=== PATIENT | male | born 1950 | race Caucasian/White ===

== ENCOUNTER 2024-07-22 08:06 | Day surgery (SDC) | payer MEDICARE, SELFPAY ==
[2024-07-22] MEDS: Tropicam./Phenyleph. (1/2.5%) 5 ML BTL OD ×3 (08:45→09:08)
[2024-07-22 08:50] VITALS: BP 128/79; PULSE 74; RESP 16; TEMP 36.3; O2SAT 97
--- NOTE | 2024-07-22 09:11 | ANES.PREOP_ITS ---
General Info Date of Service Date Performed: 07/22/24 Height: 5 ft 4 in Weight: 92.8 kg Body Mass Index (BMI): 35.1 Surgical Procedure: Operation Date: 07/22/24 09:55 Proposed Procedure Side Surgeon p Cataract Extraction with IOL Implant Right Edward Rodrigues MD Meds Allergies and Home Medications Allergies Allergy/AdvReac Type Severity Reaction Status Date / Time Sulfa (Sulfonamide Allergy Intermediate Skin Rash Verified 07/22/24 08:57 Antibiotics) hydromorphone AdvReac Intermediate Dizziness/L Verified 07/22/24 08:57 ighthead Home Medication ?Medication ?Instructions ?Recorded antiarthritic combination no.2 900 mg PO DAILY 07/20/24 mg tablet (glucosamine-chondroitin) aspirin 81 mg capsule 81 mg PO DAILY 07/20/24 cholecalciferol (vitamin D3) 125 125 mcg PO DAILY 07/20/24 mcg (5,000 unit) tablet (Vitamin D3) coQ10 (ubiquinol) 100 mg capsule 100 mg PO DAILY 07/20/24 esomeprazole magnesium 20 mg 20 mg PO DAILY 07/20/24 capsule,delayed release (Nexium) lisinopril 20 mg tablet 20 mg PO DAILY 07/20/24 magnesium aspartate HCl 61 mg (615 61 mg PO BID 07/20/24 mg) tablet,delayed release prostate blend 07/20/24 quercetin 500 mg capsule 600 mg PO DAILY 07/20/24 rosuvastatin 20 mg tablet (Crestor) 20 mg PO DAILY 07/20/24 selenium 200 mcg capsule 200 mcg PO DAILY 07/20/24 sildenafil 50 mg tablet 50 mg PO DAILY 07/20/24 turmeric 400 mg capsule 500 mg PO DAILY 07/20/24 vitamin B complex 1 cap PO DAILY 07/20/24 Current Visit Medications: Current Medications Generic Name Dose Route Start Last Admin Trade Name Freq PRN Reason Stop Dose Admin Acetaminophen 1,000 mg 07/22/24 06:00 Acetaminophen 500 Mg Tab PO 08/21/24 05:59 Q4H PRN PRN Balanced Salt Solution 500 ml 07/22/24 06:00 Balanced Salt Soln.-Plus 500 Ml Bag OP 08/21/24 05:59 DIRECTED DALY Miscellaneous Medication 0 ml 07/22/24 06:00 Prednisolone 1%, Moxifloxacin 0.5%, Bromfenac 0.09% 5.6ml Btl OD 08/21/24 05:59 DIRECTED [facility] Miscellaneous Medication 0 ml 07/22/24 06:00 07/22/24 09:08 Tropicam./Phenyleph. (1/2.5%) 5 Ml Btl OD 08/21/24 05:59 1 drp DIRECTED [facility] Administration Tetracaine HCl 0 ml 07/22/24 06:00 Tetracaine 0.5% 4 Ml Btl OD 08/21/24 05:59 DIRECTED [facility] PFSH Active Problems Active Problems: Problem Status Onset Code Nuclear age-related cataract, right eye Acute H25.11 Medical History Medical History Stenosis of left vertebral artery Skin lesion of left ear Skin lesion Senile hyperkeratosis Reflux esophagitis Prediabetes URIEL (obstructive sleep apnea) Obesity Nocturnal hypoxia Left shoulder pain Left hip pain BPH (benign prostatic hyperplasia) Incomplete bladder emptying HTN (hypertension) HLD (hyperlipidemia) History of broken collarbone Cervical stenosis of spine Tobacco Smoking/Tobacco Use Status: Never Alcohol Alcohol Intake: never Substance Use Substance use: Never Substance use type: does not use Vital Signs and Lab Results Vital Signs Most Recent Vital Signs in EMR: Most Recent Vital Signs Temp Pulse Resp BP Pulse Ox 36.3 C L 74 16 128/79 97 07/22/24 08:50 07/22/24 08:50 07/22/24 08:50 07/22/24 08:50 07/22/24 08:50 Lab Results Blood Type / Crossmatch: No Data to Display Complete Blood Count: No Data to Display Complete Metabolic Panel: No Data to Display Liver Function Panel: No Data to Display Coagulation Panel: No Data to Display Cardiac Panel: No Data to Display Arterial Blood Gas: No Data to Display Venous Blood Gas: No Data to Display Pancreas Panel: No Data to Display Thyroid Panel: No Data to Display Infectious Disease: No Data to Display Blood Cultures: No Data to Display Toxicology Panel: No Data to Display Anesthesia Assessment and Plan Anesthesia History Personal History: No History of Anesthesia Complications Family History: No Family History of Anesthesia Complications Exercise Tolerance Exercise Tolerance: Metabolic Equivalents>4 Pertinent Negatives Pertinent Negatives: No Symptoms of GERD Cardiac & Pulmonary Exam Cardiac Exam: Normal S1/S2 Heart Sounds Pulmonary Exam: Clear Bilateral Breath Sounds Implantable Cardiac Device Does patient have a Pacemaker or an ICD?: No Airway Exam Known Difficult Airway: No Mallampati Class: 2 Mouth Opening: Normal (> 3cm) Thyromental Distance: Greater than 3 cm Neck Range of Motion: Full ROM Neck Circumference: Normal Teeth Condition: Normal Dentition ASA Classification ASA Score: ASA 2 Emergency Case?: No NPO Status NPO Status: NPO Clears >2 hours, Solids >8 hours Anesthesia Plan Resuscitation Status: Full Code Anesthesia Technique: MAC Anesthesia Airway Planned: Natural Airway Monitors Used: Standard Monitors
[2024-07-22 09:13] VITALS: BMI 35.1
[2024-07-22] MEDS: Tetracaine 0.5% 4 ML BTL OD (10:21)
[2024-07-22] MEDS: Povidone-Iodine Ophth 30 ML BTL (10:22)
[2024-07-22] MEDS: Balanced Salt Soln.-PLUS 500 ML BAG OP (10:27)
[2024-07-22] MEDS: Phenylephrine/Lidocaine (15/10) MG/ML 1 ML VIAL (10:27)
[2024-07-22] MEDS: Trypan Blue 0.06% 0.5 ML SYR (10:28)
[2024-07-22] MEDS: Duovisc Viscoelastic System EACH 1 EACH (10:28)
[2024-07-22] MEDS: Lidocaine 1% Pres-Free 5 ML VIAL (10:29)
[2024-07-22] MEDS: Prednisolone 1%, Moxifloxacin 0.5%, Bromfenac 0.09% 5.6ML BTL OD (10:49)
[2024-07-22] MEDS: Moxifloxacin-PF 1 MG/ML VIAL (10:49)
[2024-07-22 10:56] VITALS: BP 118/76; PULSE 66; RESP 17; TEMP 36.5; O2SAT 97
--- NOTE | 2024-07-22 11:02 | ROE_ITS ---
Operative Note Operative Note PRE-OP DIAGNOSIS: Dense nuclear cataract, right eye POST-OP DIAGNOSIS: same PROCEDURE: Cataract extraction using phacoemulsification with intraocular lens implant, right eye SURGEON: Edward Rodrigues ANESTHESIA TYPE: Local By Surgeon and MAC Refer to Anesthesia Record ESTIMATED BLOOD LOSS: 0 PATHOLOGY: none sent COMPLICATIONS: None Patient was transported to: same day Patient's condition: stable Implants: Tong Clareon [id number] Indications: Progressive decreased vision due to cataract, right eye Procedure Description: CATARACT SURGERY OPERATIVE REPORT PREOPERATIVE DIAGNOSIS: Dense nuclear cataract, right eye POSTOPERATIVE DIAGNOSIS: Same OPERATION: Cataract extraction using phacoemulsification with posterior chamber intraocular lens implant, right eye. IOL: IOL [facility] Supervisor/Model: Tong Clareon [id number] IOL Power: + 28.0 diopters IOL Serial Number: [id number] Optic Diameter: 6.0mm Haptic/Overall Diameter: 13.0mm PHACO INFO: Tong Centurion Vision System with OZil and Active Fluidics Cumulative Dispersed Energy (CDE): 22.33 seconds SURGEON: Edward Rodrigues MD, DICK ANESTHESIA: Monitored Anesthesia Care (MAC), with local sub-tenon's anesthetic infiltration COMPLICATIONS: None SPECIMENS: None INDICATIONS FOR PROCEDURE: The patient is a 73-year-old male with history of diminished visual acuity in his right eye secondary to the development of dense nuclear cataract. He is significantly symptomatic that he desires cataract surgery in attempt to improve and maximize his vision. See office notes for detailed information. PROCEDURE: The correct surgical eye was identified and marked as the right eye and the pupil was dilated in the preoperative area using mydriatics and cycloplegics. The dilated pupil size was 8.0 mm. The patient elected to proceed without oral sedation. The patient was brought to the operating room where cardiopulmonary monitoring was instituted and surgical time-out was performed, confirming the correct operative eye and IOL power. Topical anesthesia was administered and ophthalmic povidone-iodine 5% was instilled into the conjunctival fornices. The narendra-ocular area was prepped with Betadine 10% solution and draped in the usual sterile fashion for intraocular surgery, including an aperture drape. A Tegaderm transparent film dressing was cut in half and used to cover the lashes and lid margins. Care was taken to sequester the lashes and lid margins under the Tegaderm dressing. A lid speculum was placed between the lids of the operative eye and the Tong LuxOR Revalia operating microscope was maneuvered into position. Renny scissors were then used to make a conjunctival buttonhole approximately 6mm posterior to the limbus in the inferonasal quadrant. Blunt dissection was carried out to expose bare sclera, and a blunt-tipped sub-tenon?s anesthesia cannula was introduced and passed posteriorly along the globe where non- preserved plain lidocaine was injected into posterior sub-Tenon?s space. A sideport knife was used to make a paracentesis port. VisionBlue was injected into the anterior chamber and allowed to sit for 30 seconds. Intraocular phenylephrine/lidocaine was injected into the anterior chamber. The anterior chamber was then filled with viscoelastic. A keratome knife was used to construct a two--plane clear corneal tunnel extending 2.0mm into clear cornea. A flap was raised on the anterior capsule and capsulorhexis forceps were used to complete a continuous curvilinear capsulorhexis of 5.5 mm. Balanced salt solution was then used to perform cortical cleaving hydrodissection and nuclear hydrodelineation until the lens could be freely rotated within the capsular bag. The lens nucleus was then disassembled and removed within the capsular bag and iris plane using phacoemulsification. Additional Viscoat was injected into the anterior chamber intermittently due to the dense brunescent nuclear cataract. Residual cortical material was removed using the I/A handpiece. The posterior capsule was carefully polished to remove as much residual lens epithelial cells as safely possible. The capsular bag was then inflated and the anterior chamber deepened with cohesive viscoelastic. The lens implant described above was inserted into the capsular bag using the Tong Autonome Injector. A Kuglen hook was used to dial the IOL into position. Residual viscoelastic was then removed first from posterior to the IOL, then from the anterior chamber using the I/A handpiece. The lens implant was noted to center nicely within the capsular bag. The incisions were stromally hydrated, and the anterior chamber was reformed using BSS. Then 0.5cc of moxifloxacin 1.0mg/ml were injected into the capsular bag and anterior chamber. The incisions were checked with a Weck spear and found to be secure. Several drops of ophthalmic povidone-iodine 5% were then applied to the eye followed by two drops of combination steroid/NSAID/antibiotic solution. The drapes were removed and a clear plastic protective eye shield was placed over the eye. The patient was then returned to Same Day Surgery in stable condition. Date of Procedure: 07/22/24
--- NOTE | 2024-07-22 11:02 | W.PM.DSUDISC ---
Date of service: 07/22/24 Discharge Plan Disposition Patient Disposition: Home Discharge Details Attending Provider: Edward Rodrigues Primary Care Provider: MAISHA CASTELLANOS Home Meds and New Rx's Prescriptions: No Action aspirin 81 mg capsule 81 mg PO DAILY coQ10 (ubiquinol) 100 mg capsule 100 mg PO DAILY glucosamine-chondroitin 900 mg tablet PO DAILY lisinopril 20 mg tablet 20 mg PO DAILY magnesium aspartate HCl 61 mg (615 mg) tablet,delayed release (DR/EC) 61 mg PO BID esomeprazole magnesium [Nexium] 20 mg capsule,delayed release(DR/EC) 20 mg PO DAILY prostate blend quercetin 500 mg capsule 600 mg PO DAILY rosuvastatin [Crestor] 20 mg tablet 20 mg PO DAILY selenium 200 mcg capsule 200 mcg PO DAILY sildenafil 50 mg tablet 50 mg PO DAILY Rx Instructions: administer 30 minutes to 4 hours before activity turmeric 400 mg capsule 500 mg PO DAILY vitamin B complex Capsule 1 cap PO DAILY cholecalciferol (vitamin D3) [Vitamin D3] 125 mcg (5,000 unit) tablet 125 mcg PO DAILY Discharge Instructions Stand Alone Forms: DSU Post-Op Cataract, Gael Cabrera (DSU) Discharge Orders Discharge Orders: Discharge Order (Routine); Ordered 07/22/24 Ordered By: Edward Rodrigues DS: Diagnosis Discharge Diagnosis (1) Nuclear age-related cataract, right eye: Status: Resolved
--- NOTE | 2024-07-22 11:24 | W.ANESPOSTOP ---
Postoperative Evaluation Date, Time and Location Date Performed: 07/22/24 Time Performed: 11:18 Patient Location: Day Surgery Unit Vital Signs Most Recent Imported Vital Signs: Most Recent Vital Signs Temp Pulse Resp BP Pulse Ox 36.5 C 66 17 118/76 97 07/22/24 10:56 07/22/24 10:56 07/22/24 10:56 07/22/24 10:56 07/22/24 10:56 Pain Score Most Recent Pain Score: Most Recent Pain Score Pain Level 0 07/22/24 10:56 Assessment Mental Status: Awake (Alert & Oriented to Patient Baseline) Airway and Respiratory Function: Patent airway with normal (patient baseline) respiratory exam Cardiovascular Function: Hemodynamically Stable Hydration Status: Adequately Hydrated Nausea & Vomiting: No Nausea or Vomiting Pain: Pt. Denies Any Pain Peripheral Nerve Block: Patient did not receive a nerve block
== END 2024-07-22 11:13 | disposition home or self-care (01) ==
PROVIDERS: PCP Family Medicine; Visit Provider Ophthalmology
PROC: (CPT 66984; principal; 2024-07-22 09:45)
DX: H25.11 Age-related nuclear cataract, right eye (principal)
CPT/HCPCS: 66984; 00123; V2632; J2003

== ENCOUNTER 2024-07-29 06:45 | Day surgery (SDC) | payer MEDICARE, SELFPAY ==
[2024-07-29 06:48] VITALS: BP 122/80; PULSE 64; RESP 18; TEMP 36.6; O2SAT 96
[2024-07-29] MEDS: Tropicam./Phenyleph. (1/2.5%) 5 ML BTL OS ×3 (06:59→07:09)
[2024-07-29 08:16] VITALS: BMI 34.9
--- NOTE | 2024-07-29 08:16 | ANES.PREOP_ITS ---
General Info Date of Service Date Performed: 07/29/24 Height: 5 ft 4 in Weight: 92.2 kg Body Mass Index (BMI): 34.9 Surgical Procedure: Operation Date: 07/29/24 08:25 Proposed Procedure Side Surgeon p Cataract Extraction with IOL Implant Left Edward Rodrigues MD Meds Allergies and Home Medications Allergies Allergy/AdvReac Type Severity Reaction Status Date / Time Sulfa (Sulfonamide Allergy Intermediate Skin Rash Verified 07/29/24 07:01 Antibiotics) hydromorphone AdvReac Intermediate Dizziness/L Verified 07/29/24 07:01 ighthead Home Medication ?Medication ?Instructions ?Recorded antiarthritic combination no.2 900 900 mg PO DAILY 07/20/24 mg tablet (glucosamine-chondroitin) aspirin 81 mg capsule 81 mg PO DAILY 07/20/24 cholecalciferol (vitamin D3) 125 125 mcg PO DAILY 07/20/24 mcg (5,000 unit) tablet (Vitamin D3) coQ10 (ubiquinol) 100 mg capsule 100 mg PO DAILY 07/20/24 esomeprazole magnesium 20 mg 20 mg PO DAILY 07/20/24 capsule,delayed release (Nexium) lisinopril 20 mg tablet 20 mg PO DAILY 07/20/24 magnesium aspartate HCl 61 mg (615 61 mg PO BID 07/20/24 mg) tablet,delayed release prostate blend 07/20/24 quercetin 500 mg capsule 600 mg PO DAILY 07/20/24 rosuvastatin 20 mg tablet (Crestor) 20 mg PO DAILY 07/20/24 selenium 200 mcg capsule 200 mcg PO DAILY 07/20/24 sildenafil 50 mg tablet 50 mg PO DAILY 07/20/24 turmeric 400 mg capsule 500 mg PO DAILY 07/20/24 vitamin B complex 1 cap PO DAILY 07/20/24 Current Visit Medications: Current Medications Generic Name Dose Route Start Last Admin Trade Name Freq PRN Reason Stop Dose Admin Acetaminophen 1,000 mg 07/29/24 06:00 Acetaminophen 500 Mg Tab PO 08/28/24 05:59 Q4H PRN PRN Balanced Salt Solution 500 ml 07/29/24 06:00 Balanced Salt Soln.-Plus 500 Ml Bag OP 08/28/24 05:59 DIRECTED DALY Miscellaneous Medication 0 ml 07/29/24 06:00 Prednisolone 1%, Moxifloxacin 0.5%, Bromfenac 0.09% 5.6ml Btl OS 03/16/25 05:59 DIRECTED [facility] Miscellaneous Medication 0 ml 07/29/24 06:00 07/29/24 07:09 Tropicam./Phenyleph. (1/2.5%) 5 Ml Btl OS 08/28/24 05:59 1 drp DIRECTED DALY Administration Tetracaine HCl 0 ml 07/29/24 06:00 Tetracaine 0.5% 4 Ml Btl OS 08/28/24 05:59 DIRECTED [facility] PFSH Active Problems Active Problems: Problem Status Onset Code Nuclear age-related cataract, left eye Acute H25.12 Nuclear age-related cataract, right eye Resolved H25.11 Medical History Medical History Stenosis of left vertebral artery Skin lesion of left ear Skin lesion Senile hyperkeratosis Reflux esophagitis Prediabetes URIEL (obstructive sleep apnea) Obesity Nocturnal hypoxia Left shoulder pain Left hip pain BPH (benign prostatic hyperplasia) Incomplete bladder emptying HTN (hypertension) HLD (hyperlipidemia) History of broken collarbone Cervical stenosis of spine Tobacco Smoking/Tobacco Use Status: Never Alcohol Alcohol Intake: never Substance Use Substance use: Never Substance use type: does not use Vital Signs and Lab Results Vital Signs Most Recent Vital Signs in EMR: Most Recent Vital Signs Temp Pulse Resp BP Pulse Ox 36.6 C 64 18 122/80 96 07/29/24 06:48 07/29/24 06:48 07/29/24 06:48 07/29/24 06:48 07/29/24 06:48 Lab Results Blood Type / Crossmatch: No Data to Display Complete Blood Count: No Data to Display Complete Metabolic Panel: No Data to Display Liver Function Panel: No Data to Display Coagulation Panel: No Data to Display Cardiac Panel: No Data to Display Arterial Blood Gas: No Data to Display Venous Blood Gas: No Data to Display Pancreas Panel: No Data to Display Thyroid Panel: No Data to Display Infectious Disease: No Data to Display Blood Cultures: No Data to Display Toxicology Panel: No Data to Display Anesthesia Assessment and Plan Anesthesia History Personal History: No History of Anesthesia Complications Family History: No Family History of Anesthesia Complications Exercise Tolerance Exercise Tolerance: Metabolic Equivalents>4 Pertinent Negatives Pertinent Negatives: No Symptoms of GERD Cardiac & Pulmonary Exam Cardiac Exam: Normal S1/S2 Heart Sounds Pulmonary Exam: Clear Bilateral Breath Sounds Implantable Cardiac Device Does patient have a Pacemaker or an ICD?: No Airway Exam Known Difficult Airway: No Mallampati Class: 2 Mouth Opening: Normal (> 3cm) Thyromental Distance: Greater than 3 cm Neck Range of Motion: Full ROM Neck Circumference: Normal Teeth Condition: Normal Dentition ASA Classification ASA Score: ASA 2 Emergency Case?: No NPO Status NPO Status: NPO Clears >2 hours, Solids >8 hours Anesthesia Plan Resuscitation Status: Full Code Anesthesia Technique: MAC Anesthesia Airway Planned: Natural Airway Monitors Used: Standard Monitors
[2024-07-29] MEDS: Duovisc Viscoelastic System EACH 1 EACH (08:28)
[2024-07-29] MEDS: Moxifloxacin-PF 1 MG/ML VIAL (08:29)
[2024-07-29] MEDS: Phenylephrine/Lidocaine (15/10) MG/ML 1 ML VIAL (08:29)
[2024-07-29] MEDS: Lidocaine 1% Pres-Free 5 ML VIAL (08:29)
[2024-07-29] MEDS: Povidone-Iodine Ophth 30 ML BTL (08:30)
[2024-07-29] MEDS: Trypan Blue 0.06% 0.5 ML SYR (08:30)
[2024-07-29] MEDS: Tetracaine 0.5% 4 ML BTL OS (08:31)
[2024-07-29] MEDS: Prednisolone 1%, Moxifloxacin 0.5%, Bromfenac 0.09% 5.6ML BTL OS (08:31)
[2024-07-29] MEDS: Balanced Salt Soln.-PLUS 500 ML BAG OP (08:31)
--- NOTE | 2024-07-29 08:52 | W.PM.DSUDISC ---
Date of service: 07/29/24 Discharge Plan Disposition Patient Disposition: Home Discharge Details Attending Provider: Edward Rodrigues Primary Care Provider: MAISHA CASTELLANOS Home Meds and New Rx's Prescriptions: No Action aspirin 81 mg capsule 81 mg PO DAILY coQ10 (ubiquinol) 100 mg capsule 100 mg PO DAILY glucosamine-chondroitin 900 mg tablet 900 mg PO DAILY lisinopril 20 mg tablet 20 mg PO DAILY magnesium aspartate HCl 61 mg (615 mg) tablet,delayed release (DR/EC) 61 mg PO BID esomeprazole magnesium [Nexium] 20 mg capsule,delayed release(DR/EC) 20 mg PO DAILY prostate blend quercetin 500 mg capsule 600 mg PO DAILY rosuvastatin [Crestor] 20 mg tablet 20 mg PO DAILY selenium 200 mcg capsule 200 mcg PO DAILY sildenafil 50 mg tablet 50 mg PO DAILY Rx Instructions: administer 30 minutes to 4 hours before activity turmeric 400 mg capsule 500 mg PO DAILY vitamin B complex Capsule 1 cap PO DAILY cholecalciferol (vitamin D3) [Vitamin D3] 125 mcg (5,000 unit) tablet 125 mcg PO DAILY Discharge Instructions Stand Alone Forms: DSU Post-Op CataractGael (DSU) Discharge Orders Discharge Orders: Discharge Order (Routine); Ordered 07/29/24 Ordered By: Edward Rodrigues DS: Diagnosis Discharge Diagnosis (1) Nuclear age-related cataract, left eye: Status: Resolved
[2024-07-29 08:53] VITALS: BP 115/82; PULSE 67; RESP 16; TEMP 36.5; O2SAT 96
--- NOTE | 2024-07-29 08:53 | ROE_ITS ---
Operative Note Operative Note PRE-OP DIAGNOSIS: Dense nuclear cataract, left eye POST-OP DIAGNOSIS: same PROCEDURE: Cataract extraction using phacoemulsification with intraocular lens implant, left eye SURGEON: Edward Rodrigues ANESTHESIA TYPE: Local By Surgeon and MAC Refer to Anesthesia Record PATHOLOGY: none sent COMPLICATIONS: None Patient was transported to: same day Patient's condition: stable Implants: Tong Clareon [id number] Indications: Progressive decreased vision due to cataract, left eye Procedure Description: CATARACT SURGERY OPERATIVE REPORT PREOPERATIVE DIAGNOSIS: Dense nuclear cataract, left eye POSTOPERATIVE DIAGNOSIS: Same OPERATION: Cataract extraction using phacoemulsification with posterior chamber intraocular lens implant, left eye. IOL: IOL Lock Installer/Model: Tong Clareon [id number] IOL Power: + 28.0 diopters IOL Serial Number: [id number] Optic Diameter: 6.0mm Haptic/Overall Diameter: 13.0mm PHACO INFO: Tong Centurion Vision System with OZil and Active Fluidics Cumulative Dispersed Energy (CDE): 16.27 seconds SURGEON: Edward Rodrigues MD, DICK ANESTHESIA: Monitored Anesthesia Care (MAC), with local sub-tenon's anesthetic infiltration COMPLICATIONS: None SPECIMENS: None INDICATIONS FOR PROCEDURE: The patient is a 73-year-old male with history of diminished visual acuity in both eyes secondary to the development of dense bilateral nuclear cataracts. He has already undergone cataract surgery in the right eye and is doing well postoperatively. He now presents for cataract surgery in the left eye. See office notes for detailed information. PROCEDURE: The correct surgical eye was identified and marked as the left eye and the pupil was dilated in the preoperative area using mydriatics and cycloplegics. The dilated pupil size was 7.0 mm. The patient elected to proceed without oral sedation. The patient was brought to the operating room where cardiopulmonary monitoring was instituted and surgical time-out was performed, confirming the correct operative eye and IOL power. Topical anesthesia was administered and ophthalmic povidone-iodine 5% was instilled into the conjunctival fornices. The narendra-ocular area was prepped with Betadine 10% solution and draped in the usual sterile fashion for intraocular surgery, including an aperture drape. A Tegaderm transparent film dressing was cut in half and used to cover the lashes and lid margins. Care was taken to sequester the lashes and lid margins under the Tegaderm dressing. A lid speculum was placed between the lids of the operative eye and the Tong LuxOR Revalia operating microscope was maneuvered into position. Renny scissors were then used to make a conjunctival buttonhole approximately 6mm posterior to the limbus in the inferonasal quadrant. Blunt dissection was carried out to expose bare sclera, and a blunt-tipped sub-tenon?s anesthesia cannula was introduced and passed posteriorly along the globe where non- preserved plain lidocaine was injected into posterior sub-Tenon?s space. A sideport knife was used to make a paracentesis port. Intraocular phenylephrine/lidocaine was injected into the anterior chamber. The anterior chamber was then filled with viscoelastic. A keratome knife was used construct a two-plane clear corneal tunnel extending 2.0mm into clear cornea. A flap was raised on the anterior capsule and capsulorhexis forceps were used to complete a continuous curvilinear capsulorhexis of 5.5 mm. Balanced salt solution was then used to perform cortical cleaving hydrodissection and nuclear hydrodelineation until the lens could be freely rotated within the capsular bag. The lens nucleus was then disassembled and removed within the capsular bag and iris plane using phacoemulsification. A deep central groove was sculpted into the central nucleus, which was then rotated 180 degrees and the groove continued. The lens was cracked into 2 halves, and each half was then subchopped into multiple small fragments under additional Viscoat protection. Residual cortical material was removed using the irrigation/aspiration handpiece. The posterior capsule was carefully polished to remove as much residual lens epithelial cells as safely possible. The capsular bag was then inflated and the anterior chamber deepened with viscoelastic. The lens implant described above was inserted into the capsular bag using the Tong Autonome Injector. A Kuglen hook was used to dial the IOL into position. Residual viscoelastic was then removed first from posterior to the IOL, then from the anterior chamber using the I/A handpiece. The lens implant was noted to center nicely within the capsular bag. The incisions were stromally hydrated, and the anterior chamber was reformed using BSS. Then 0.5cc of moxifloxacin 1.0mg/ml were injected into the capsular bag and anterior chamber. The incisions were checked with a Weck spear and found to be secure. Several drops of ophthalmic povidone-iodine 5% were then applied to the eye followed by two drops of combination steroid/NSAID/antibiotic solution. The drapes were removed and a clear plastic protective eye shield was placed over the eye. The patient was then returned to Same Day Surgery in stable condition. Date of Procedure: 07/29/24
--- NOTE | 2024-07-29 09:11 | W.ANESPOSTOP ---
Postoperative Evaluation Date, Time and Location Date Performed: 07/29/24 Time Performed: 08:55 Patient Location: Day Surgery Unit Vital Signs Most Recent Imported Vital Signs: Most Recent Vital Signs Temp Pulse Resp BP Pulse Ox 36.5 C 67 16 115/82 96 07/29/24 08:53 07/29/24 08:53 07/29/24 08:53 07/29/24 08:53 07/29/24 08:53 Pain Score Most Recent Pain Score: Most Recent Pain Score Pain Level 0 07/29/24 08:53 Assessment Mental Status: Awake (Alert & Oriented to Patient Baseline) Airway and Respiratory Function: Patent airway with normal (patient baseline) respiratory exam Cardiovascular Function: Hemodynamically Stable Hydration Status: Adequately Hydrated Nausea & Vomiting: No Nausea or Vomiting Pain: Pt. Denies Any Pain Peripheral Nerve Block: Patient did not receive a nerve block
== END 2024-07-29 09:16 | disposition home or self-care (01) ==
LOC: SUR 06:47
PROVIDERS: PCP Family Medicine; Visit Provider Ophthalmology
PROC: (CPT 66984; principal; 2024-07-29 08:15)
DX: H25.12 Age-related nuclear cataract, left eye (principal); Z98.41 Cataract extraction status, right eye
CPT/HCPCS: 66984; 00123; V2632; J2003